=== PATIENT | female | born 1990 | race Two or more races ===

== ENCOUNTER → 2024-06-05 09:18 | Outpatient (REF) | payer OTHER, SELFPAY ==
[2024-06-05 17:40] LABS: Rubella Positive
[2024-06-06 15:02] LABS: Mumps Virus IgG Positive; Rubeola (Measles) IgG Equivocal; Varicella Zoster IgG (VZV) Negative
[2024-06-07 05:44] LABS: Quantiferon Mitogen minus NIL 9.98 IU/mL; Quantiferon NIL 0.02 IU/mL; Quantiferon TB Gold Plus Negative (Negative)
== END ==
LOC: OHS 09:18
PROVIDERS: ATTENDING PHYSICIAN Nurse Practitioner Family
DX: Z23 Encounter for immunization (principal)
CPT/HCPCS: 36415; 86480; 86735; 86762; 86765; 86787